=== PATIENT | female | born 1975 | race African-American/Black ===

== ENCOUNTER 2016-10-04 08:25 | Emergency (ER) | payer OTHER ==
[~2016-10-04] VITALS: Ht 170.2 cm; Wt 70.3 kg
--- NOTE | ~2016-10-04 | EKG ---
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: SHELLY : 1975 Requested By: Natalie Andre Order Number: [id number] MD: Fredy Odom Measurements Intervals [place] Rate: 91 P: 35 [place]: 146 QRS: -22 QRSD: 98 T: 9 QT: 360 QTc: 443 Interpretive Statements Sinus rhythm Borderline left axis deviation Abnormal R-wave progression, early transition Borderline T wave abnormalities No previous ECG available for comparison Electronically Signed On 10-04-2016 15:14:41 [employer] by Fredy Odom [email or web address] <ELECTRONICALLY SIGNED> By: Fredy Odom MD 10/04/16 1514 D: [id number] 3 Fredy Odom MD /CHRISTINA
[~2016-10-04 08:25] MED LIST: BACTRIM DS TAB1 EACH PO; CHILDREN'S15 MG/1 ML PO; IRON325 PO; NORCO 5-325 TA1 EACH PO; PERCOCET 5-3251 EACH PO; ZESTORETIC 20-1 EAC2 PO
[2016-10-04 09:01] LABS: ABSOLUTE NEUTROPHILS 9.2 thou/uL (1.4-8.2); BASOPHILS 0.1 % (0.0-2.0); EOSINOPHILS 0.1 % (0.0-3.0); HEMATOCRIT 37.9 % (37.0-47.0); HEMOGLOBIN 12.5 gm/dL (12.0-15.0); LYMPHOCYTES 11.6 % (24.0-44.0); MCH 28.1 pg (26.0-34.0); MCHC 33.1 % (28.0-37.0); MCV 84.8 fL (80.0-100.0); MONOCYTES 5.5 % (1.0-8.0); PLATELET COUNT 265 thou/uL (150-400); POLYS 82.7 % (36.0-66.0); RBC 4.47 mil/uL (4.20-5.00); RDW 12.3 % (10.5-14.5); WBC 11.1 thou/uL (4.0-11.0)
[2016-10-04 09:06] LABS: ANION GAP 9 mmol/L (7-16); BUN 17 mg/dL (7-18); CHLORIDE 100 mmol/L (98-107); CO2 26 mmol/L (21-32); CREATININE 0.9 mg/dL (0.6-1.3); GLUCOSE 104 mg/dL (70-99); MANUAL DIFF NO; POTASSIUM 3.5 mmol/L (3.5-5.1); SODIUM 135 mmol/L (136-145)
[2016-10-04 09:15] LABS: MAGNESIUM 2.1 mg/dL (1.8-2.4); TROPONIN-I < 0.04 ng/mL (<0.04-0.07)
== END 2016-10-04 11:27 | disposition home or self-care (01) ==
LOC: ER 08:25
PROVIDERS: Emergency Medicine
DX: I10 Essential (primary) hypertension (principal); Z88.0 Allergy status to penicillin

== ENCOUNTER 2016-11-29 18:12 | Emergency (ER) | payer OTHER ==
[~2016-11-29] VITALS: Ht 170.2 cm; Wt 74.4 kg
[2016-11-29] MEDS ORDERED: ZPAK PO (19:55)
[2016-11-29] MEDS ORDERED: MEDROLDOSEPACK PO (19:55)
== END 2016-11-29 20:15 | disposition home or self-care (01) ==
LOC: ER 18:12
DX: J18.9 Pneumonia, unspecified organism (principal); J40 Bronchitis, not specified as acute or chronic; I10 Essential (primary) hypertension; Z88.0 Allergy status to penicillin

== ENCOUNTER → 2017-08-01 | Outpatient (CLI) | payer OTHER ==
[~2017-08-01] MED LIST changes: +CARDIZEM CD120 MG PO; +LISINOPRIL-HCT1 EACH PO; +MEDROLDOSEPACK PO; +TAMBOCOR 100 M100 MG PO; +ZPAK PO
== END ==
LOC: ULTRA 10:19
DX: M79.601 Pain in right arm (principal)

== ENCOUNTER 2018-10-02 15:20 | Emergency (ER) | payer OTHER ==
[~2018-10-02] VITALS: Ht 170.2 cm; Wt 71.7 kg
[2018-10-02 16:25] LABS: ABSOLUTE NEUTROPHILS 5.4 thou/uL (1.4-8.2); BASOPHILS 0.5 % (0.0-2.0); EOSINOPHILS 1.3 % (0.0-3.0); HEMATOCRIT 37.4 % (37.0-47.0); HEMOGLOBIN 12.9 gm/dL (12.0-15.0); LYMPHOCYTES 30.4 % (24.0-44.0); MCH 29.1 pg (26.0-34.0); MCHC 34.5 g/dL (28.0-37.0); MCV 84.4 fL (80.0-100.0); PLATELET COUNT 293 thou/uL (150-400); POLYS 59.8 % (36.0-66.0); RBC 4.43 mil/uL (4.20-5.00); RDW 12.5 % (10.5-14.5); WBC 9.1 thou/uL (4.0-11.0)
[2018-10-02 16:31] LABS: CALCIUM 8.9 mg/dL (8.5-10.1); CREATININE 0.9 mg/dL (0.6-1.0); POTASSIUM 3.9 mmol/L (3.5-5.1)
--- NOTE | 2018-10-02 16:36 | EKG ---
[place] [address] [place] [address] ELECTROCARDIOGRAM REPORT Name: ROSALIA VARMA Room #: [facility].#: [id number] Admission: Attend Phys: Discharge: Date of : 71 Report #: [id number] THIS REPORT FOR: //name// [facility] ED Test Date: 2018-10-02 Test Time: 16:26:24 Pat Name: ROSALIA VARMA Department: Room: Gender: F Md Psychiatry: ANN MARIEMason : 1975 Requested By: Dave Carvajal Order Number: [id number] MD: Fredy Odom Measurements Intervals [place] Rate: 60 P: -16 [place]: 169 QRS: -23 QRSD: 102 T: 6 QT: 405 QTc: 405 Interpretive Statements Sinus rhythm RSR' in V1 or V2, right VCD or RVH Inferior infarct, old Compared to ECG 07/25/2017 06:17:11 Right ventricular hypertrophy now present Myocardial infarct finding now present Electronically Signed On 10-02-2018 16:36:16 [employer] by Fredy Odom [email or web address] <ELECTRONICALLY SIGNED> By: Fredy Odom MD 10/02/18 1636 25 25 Fredy Odom MD /CHRISTINA
[2018-10-02 16:38] LABS: ALBUMIN 3.9 g/dL (3.4-5.0); TOTAL BILIRUBIN 0.2 mg/dL (<0.1-1.0); TOTAL PROTEIN 8.1 g/dL (6.4-8.2)
[2018-10-02] MEDS ORDERED: LISINOPRIL10 MG PO (16:43)
[2018-10-02] MEDS ORDERED: IBUPROFEN 600600 M1 PO (17:16)
[2018-10-02] MEDS ORDERED: PEPCID20 MG PO (17:16)
[2018-10-02 17:30] VITALS: BP 135/86
== END 2018-10-02 17:49 | disposition home or self-care (01) ==
LOC: ER 15:20
PROVIDERS: Physician Assistant
DX: K21.9 Gastro-esophageal reflux disease without esophagitis (principal); I10 Essential (primary) hypertension; Z98.890 Other specified postprocedural states; Z88.0 Allergy status to penicillin

== ENCOUNTER 2018-11-13 20:42 | Emergency (ER) | payer OTHER ==
[~2018-11-13] VITALS: Ht 167.6 cm; Wt 72.6 kg
[~2018-11-13 20:42] MED LIST changes: +IBUPROFEN 600600 M1 PO; +LISINOPRIL10 MG PO; +PEPCID20 MG PO
[2018-11-13 20:50] VITALS: BP 160/107
[2018-11-13] MEDS ORDERED: HYDROCHLOROTHIA25 M2 PO (20:54)
[2018-11-13] MEDS ORDERED: NORCO 5-325 TA1 EACH PO (22:03)
== END 2018-11-13 22:19 | disposition home or self-care (01) ==
LOC: ER 20:42
DX: S92.355A Nondisplaced fracture of fifth metatarsal bone, left foot, initial encounter for closed fracture (principal); I10 Essential (primary) hypertension; Z88.0 Allergy status to penicillin; X50.3XXA Overexertion from repetitive movements, initial encounter; Y93.89 Activity, other specified; Y92.89 Other specified places as the place of occurrence of the external cause; Y99.8 Other external cause status

== ENCOUNTER 2019-04-21 09:48 | Emergency (ER) | payer OTHER ==
[~2019-04-21] VITALS: Ht 170.2 cm; Wt 77.1 kg
[~2019-04-21 09:48] MED LIST changes: +HYDROCHLOROTHIA25 M2 PO
[2019-04-21 10:06] LABS: ABSOLUTE NEUTROPHILS 5.3 thou/uL (1.4-8.2); BASOPHILS 0.7 % (0.0-2.0); EOSINOPHILS 1.2 % (0.0-3.0); HEMATOCRIT 39.5 % (37.0-47.0); HEMOGLOBIN 13.3 gm/dL (12.0-15.0); LYMPHOCYTES 25.2 % (24.0-44.0); MCH 28.5 pg (26.0-34.0); MCHC 33.6 g/dL (28.0-37.0); MCV 84.9 fL (80.0-100.0); MONOCYTES 7.5 % (1.0-8.0); PLATELET COUNT 283 thou/uL (150-400); POLYS 65.4 % (36.0-66.0); RBC 4.66 mil/uL (4.20-5.00); RDW 12.9 % (10.5-14.5); WBC 8.1 thou/uL (4.0-11.0)
[2019-04-21 10:14] LABS: ANION GAP 11 mmol/L (7-16); BUN 10 mg/dL (7-18); CHLORIDE 102 mmol/L (98-107); CO2 24 mmol/L (21-32); CREATININE 0.8 mg/dL (0.6-1.0); GLUCOSE 93 mg/dL (74-106); POTASSIUM 3.9 mmol/L (3.5-5.1); SODIUM 137 mmol/L (136-145)
[2019-04-21 10:18] LABS: PROTIME 10.8 Seconds (9.3-11.4)
[2019-04-21 10:21] LABS: ALBUMIN 4.2 g/dL (3.4-5.0); DIRECT BILIRUBIN < 0.1 mg/dL (<0.1-0.3); LIPASE 127 U/L (73-393); SGOT 17 U/L (15-37); SGPT 28 U/L (30-65); TOTAL BILIRUBIN 0.2 mg/dL (<0.1-1.0); TOTAL PROTEIN 8.1 g/dL (6.4-8.2)
[2019-04-21 10:29] LABS: APTT 27.7 Seconds (24.5-32.8)
[2019-04-21 12:07] VITALS: BP 120/79
[2019-04-21] MEDS ORDERED: LIDOCAINE1 EACH TRANSDERM (12:07)
--- NOTE | 2019-04-22 08:13 | EKG ---
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: : 1975 Requested By: Natalie Andre Order Number: [id number] MD: Nixon Paniagua Measurements Intervals [place] Rate: 75 P: 10 [place]: 153 QRS: -27 QRSD: 101 T: 9 QT: 366 QTc: 409 Interpretive Statements Sinus rhythm Borderline left axis deviation Abnormal R-wave progression, early transition Nonspecific T wave abnormality Compared to ECG 10/02/2018 16:26:24 T-wave abnormality now present Electronically Signed On 04-22-2019 8:13:04 CDT by Nixon Paniagua [email or web address] <ELECTRONICALLY SIGNED> By: Nixon Paniagua MD, [facility] 04/22/19812 3 3 Nixon Paniagua MD, [facility] /EPI
== END 2019-04-21 12:08 | disposition home or self-care (01) ==
LOC: ER 09:48
PROVIDERS: Emergency Medicine
DX: S29.012A Strain of muscle and tendon of back wall of thorax, initial encounter (principal); I10 Essential (primary) hypertension; Z88.0 Allergy status to penicillin; Z98.51 Tubal ligation status; X58.XXXA Exposure to other specified factors, initial encounter; Y93.89 Activity, other specified; Y92.89 Other specified places as the place of occurrence of the external cause; Y99.8 Other external cause status

== ENCOUNTER 2019-06-16 09:22 | Emergency (ER) | payer OTHER ==
[~2019-06-16] VITALS: Ht 170.2 cm; Wt 79.4 kg
[~2019-06-16 09:22] MED LIST changes: +LIDOCAINE1 EACH TRANSDERM
[2019-06-16] MEDS ORDERED: LIDOCAINE1 EACH TRANSDERM (11:25)
[2019-06-16] MEDS ORDERED: NORCO 5-325 TA1 EAC1 PO ×2 (11:25→14:09)
[2019-06-16] MEDS ORDERED: VALIUM5 MG PO (11:25)
[2019-06-16] MEDS ORDERED: MOBIC15 MG PO (11:25)
[2019-06-16 11:50] VITALS: BP 141/95
== END 2019-06-16 12:07 | disposition home or self-care (01) ==
LOC: ER 09:22
DX: S29.012A Strain of muscle and tendon of back wall of thorax, initial encounter (principal); J40 Bronchitis, not specified as acute or chronic; I10 Essential (primary) hypertension; Z90.710 Acquired absence of both cervix and uterus; Z98.51 Tubal ligation status; Z95.5 Presence of coronary angioplasty implant and graft; Z88.0 Allergy status to penicillin; V89.2XXA Person injured in unspecified motor-vehicle accident, traffic, initial encounter; Y93.89 Activity, other specified; Y92.89 Other specified places as the place of occurrence of the external cause; Y99.8 Other external cause status

== ENCOUNTER 2020-03-03 11:57 | Emergency (ER) | payer OTHER ==
[~2020-03-03] VITALS: Ht 170.2 cm; Wt 74.8 kg
[~2020-03-03 11:57] MED LIST changes: +MOBIC15 MG PO; +NORCO 5-325 TA1 EAC1 PO; +VALIUM5 MG PO
[2020-03-03 12:46] LABS: ABSOLUTE NEUTROPHILS 5.9 thou/uL (1.4-8.2); BASOPHILS 0.8 % (0.0-2.0); EOSINOPHILS 0.6 % (0.0-3.0); HEMATOCRIT 37.2 % (37.0-47.0); HEMOGLOBIN 12.5 gm/dL (12.0-15.0); LYMPHOCYTES 25.6 % (24.0-44.0); MCHC 33.6 g/dL (28.0-37.0); MCV 83.4 fL (80.0-100.0); MONOCYTES 8.5 % (1.0-8.0); PLATELET COUNT 360 thou/uL (150-400); POLYS 64.5 % (36.0-66.0); RBC 4.46 mil/uL (4.20-5.00); RDW 13.3 % (10.5-14.5); WBC 9.2 thou/uL (4.0-11.0)
[2020-03-03 13:04] LABS: ANION GAP 8 mmol/L (7-16); BUN 11 mg/dL (7-18); CALCIUM 9.1 mg/dL (8.5-10.1); CHLORIDE 101 mmol/L (98-107); CO2 25 mmol/L (21-32); CREATININE 0.7 mg/dL (0.6-1.0); GLUCOSE 93 mg/dL (74-106); POTASSIUM 3.9 mmol/L (3.5-5.1); SODIUM 134 mmol/L (136-145)
[2020-03-03 13:14] LABS: ALBUMIN 3.8 g/dL (3.4-5.0); SGOT 23 U/L (15-37); SGPT 40 U/L (30-65); TOTAL BILIRUBIN 0.2 mg/dL (0.2-1.0); TOTAL PROTEIN 7.6 g/dL (6.4-8.2); TROPONIN-I <0.06 ng/mL (<0.06)
[2020-03-03] MEDS ORDERED: PRINIVIL20 M1 PO (15:38)
[2020-03-03] MEDS ORDERED: BUTALB-APAP-CA1 EACH PO (15:43)
[2020-03-03 15:54] VITALS: BP 137/85
--- NOTE | 2020-03-04 07:36 | EKG ---
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: [facility] : 1975 Requested By: Rashaad Tong Order Number: [id number] MD: Nixon Paniagua Measurements Intervals [place] Rate: 71 P: -11 [place]: 146 QRS: -10 QRSD: 102 T: 2 QT: 390 QTc: 424 Interpretive Statements Sinus rhythm RSR' in V1 or V2, probably normal variant Baseline wander in lead(s) V2 Compared to ECG 04/21/2019 09:54:35 RSR' in V1 or V2 now present T-wave abnormality no longer present Electronically Signed On 03-04-2020 7:36:05 CDT by Nixon Paniagua [email or web address] <ELECTRONICALLY SIGNED> By: Nixon Paniagua MD, FAC 03/04/20 0736 1208 1208 Nixon Paniagua MD, [facility] /EPI
== END 2020-03-03 15:54 | disposition home or self-care (01) ==
LOC: ER 11:57
PROVIDERS: Emergency Medicine
DX: R07.89 Other chest pain (principal); R51 Headache; R11.0 Nausea; M79.89 Other specified soft tissue disorders; I10 Essential (primary) hypertension; Z98.61 Coronary angioplasty status; Z98.51 Tubal ligation status; Z90.711 Acquired absence of uterus with remaining cervical stump; Z79.899 Other long term (current) drug therapy; Z88.0 Allergy status to penicillin

== ENCOUNTER 2021-03-24 10:14 | Emergency (ER) | payer OTHER ==
[~2021-03-24] VITALS: Ht 167.6 cm; Wt 72.6 kg
[~2021-03-24 10:14] MED LIST changes: +BUTALB-APAP-CA1 EACH PO; +PRINIVIL20 M1 PO
[2021-03-24] MEDS ORDERED: DILTIAZEM ER180 M2 PO (11:00)
[2021-03-24] MEDS ORDERED: LISINOPRIL-HCT1 EAC1 PO (11:01)
[2021-03-24] MEDS ORDERED: FEROSUL325 M1 PO (11:01)
[2021-03-24 11:10] LABS: HEMATOCRIT 34.2 % (37.0-47.0); HEMOGLOBIN 11.9 gm/dL (12.0-15.0); MCH 29.2 pg (26.0-34.0); MCHC 34.8 g/dL (28.0-37.0); MCV 84.2 fL (80.0-100.0); RBC 4.06 mil/uL (4.20-5.00); RDW 12.2 % (10.5-14.5); WBC 7.5 thou/uL (4.0-11.0)
[2021-03-24 11:14] LABS: ANION GAP 7 mmol/L (7-16); BUN 16 mg/dL (7-18); CALCIUM 8.9 mg/dL (8.5-10.1); CHLORIDE 103 mmol/L (98-107); CO2 28 mmol/L (21-32); CREATININE 0.9 mg/dL (0.6-1.0); GLUCOSE 101 mg/dL (74-106); SODIUM 138 mmol/L (136-145)
[2021-03-24 11:24] LABS: SGOT 26 U/L (15-37); SGPT 45 U/L (14-59); TOTAL BILIRUBIN 0.4 mg/dL (0.2-1.0); TOTAL PROTEIN 7.9 g/dL (6.4-8.2); TROPONIN-I <0.06 ng/mL (<0.06)
--- NOTE | 2021-03-24 12:02 | EKG ---
[facility] [place] [address] ELECTROCARDIOGRAM REPORT Name: ROSALIA VARMA Room #: [facility]#: [id number] Admission: 03/24/21 Attend Phys: Discharge: Date of : 71 Report #: [id number] 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: MPAYANA : 1975 Requested By: Heidi Fu Order Number: [id number] MD: Carlyle Rosen Measurements Intervals [place] Rate: 66 P: 14 [place]: 152 QRS: -15 QRSD: 99 T: 11 QT: 386 QTc: 405 Interpretive Statements Sinus rhythm Borderline left axis deviation Low voltage, precordial leads Abnormal R-wave progression, early transition Compared to ECG 03/03/2020 12:08:50 Low QRS voltage now present Electronically Signed On 03-24-2021 12:02:09 CDT by Carlyle Rosen [email or web address] <ELECTRONICALLY SIGNED> By: Carlyle Rosen MD, [facility] 03/24/21 1202 1046 1046 Carlyle Rosen MD, [facility] /EPI
[2021-03-24 12:39] VITALS: BP 111/84
== END 2021-03-24 12:41 | disposition home or self-care (01) ==
LOC: ER 10:14
PROVIDERS: Student in an Organized Health Care Education/Training Program
DX: R00.2 Palpitations (principal); I10 Essential (primary) hypertension; Z90.710 Acquired absence of both cervix and uterus; Z79.899 Other long term (current) drug therapy; Z88.0 Allergy status to penicillin